=== PATIENT | female | born 1980 | race Hispanic/Latino ===

== ENCOUNTER → 2021-04-28 | Outpatient (CLI) | payer OTHER, MEDICARE ==
[~2021-04-28] MED LIST: AMLO-258 PO; GLIM4TAB PO; INSU100V12 SQ; LISI40TA9 PO; METO50TA18 PO; SEVE800T7 PO
== END | disposition home or self-care (01) ==
LOC: OIH 13:13
PROVIDERS: ATTEND Internal Medicine
DX: M17.11 Unilateral primary osteoarthritis, right knee (principal); M23.90 Unspecified internal derangement of unspecified knee
CPT/HCPCS: 73560

== ENCOUNTER → 2022-09-05 | Outpatient (CLI) | payer OTHER, MEDICARE | END | disposition home or self-care (01) | LOC: RAH 12:29 | PROVIDERS: ATTEND Internal Medicine | DX: M19.072 Primary osteoarthritis, left ankle and foot (principal); M25.475 Effusion, left foot | CPT/HCPCS: 73660 ==

== ENCOUNTER → 2022-11-02 | Outpatient (CLI) | payer OTHER, MEDICARE ==
[~2022-11-02] MED LIST changes: +ACET-2079 PO; +ALPR1TAB2 PO; -AMLO-258 PO; +ATOR40TA69 PO; +BACL10TA PO; +CELE200 PO; +CETI10TA57 PO; +DICL20GE TP; +DOXY-252 PO; +FLUT16H NASAL; +IPRA42SP NS; -LISI40TA9 PO; +METO25TA6 PO; -METO50TA18 PO; +MOBIC PO; +PANT40TA PO; +PREG75 PO; -SEVE800T7 PO; +TRAM50TA4 PO; +TRAZ-185 PO
== END | disposition home or self-care (01) ==
LOC: RAH 11:57
PROVIDERS: ATTEND Internal Medicine
DX: L03.116 Cellulitis of left lower limb (principal)
CPT/HCPCS: 73630

== ENCOUNTER 2022-11-09 09:41 | Emergency (ER) | payer OTHER, MEDICARE ==
[~2022-11-09] VITALS: Ht 172.7 cm; Wt 102.1 kg
[2022-11-09] MEDS ORDERED: HYDROCODONE/ACETAMINOPHEN 5/325 MG TAB PO ONE (12:00)
[2022-11-09] MEDS ORDERED: ACET-2079 PO (14:01)
[2022-11-09 14:35] VITALS: BP 151/82
== END 2022-11-09 14:40 | disposition home or self-care (01) ==
LOC: EDH 09:41
DX: S82.142A Displaced bicondylar fracture of left tibia, initial encounter for closed fracture (principal); Z79.899 Other long term (current) drug therapy; E78.00 Pure hypercholesterolemia, unspecified; E11.9 Type 2 diabetes mellitus without complications; M19.90 Unspecified osteoarthritis, unspecified site; F41.9 Anxiety disorder, unspecified; Z90.710 Acquired absence of both cervix and uterus; V89.2XXA Person injured in unspecified motor-vehicle accident, traffic, initial encounter; Y93.89 Activity, other specified; Y92.89 Other specified places as the place of occurrence of the external cause; Y99.8 Other external cause status; S00.83XA Contusion of other part of head, initial encounter
CPT/HCPCS: 70450; 71045; 72170; 73562; 73590; 73700; 82948

== ENCOUNTER → 2023-02-06 | Outpatient (CLI) | payer OTHER, MEDICARE | END | disposition home or self-care (01) | LOC: RAH 11:11 | PROVIDERS: ATTEND Internal Medicine | DX: M85.872 Other specified disorders of bone density and structure, left ankle and foot (principal); L03.116 Cellulitis of left lower limb | CPT/HCPCS: 73620 ==

== ENCOUNTER 2024-06-12 17:06 | Emergency (ER) | payer OTHER, MEDICARE ==
[~2024-06-12] VITALS: Ht 172.7 cm; Wt 102.5 kg
[2024-06-12] MEDS ORDERED: DOXY100C5 PO (17:38)
--- NOTE | 2024-06-12 17:39 | ERN ---
ED Note History of Present Illness Stated Complaint: SKIN PROBLEM TO LEFT 3RD DIGIT Chief Complaint: Skin Problem Time Seen by MD: 17:08 Time Seen by Midlevel: 17:08 Dictation: The patient is a 43-year-old female with a history of diabetes, hypertension, ESRD TTS who presents to the emergency department with complaints of a worsening left middle finger infection. Patient reports the wound was drained on Monday by PCP and is currently on antibiotics. Patient reports she thinks she is on Keflex 4 times a day for one week. Has not completed her antibiotic treatment. Denies any fevers or chills. Denies other complaints Allergies: Coded Allergies: No Known Drug Allergies (Verified Allergy, Unknown, 11/15/13) Home Meds Active Scripts Doxycycline Hyclate (Doxycycline Hyclate) 100 Mg Capsule, 1 CAP PO BID for 5 Days, #10 CAP 0 Refills Prov:ASAD BEVERLY PACKAGE CAR DRIVER 06/12/24 Acetaminophen with Codeine (Acetaminophen-Cod #3 Tablet) 1 Each Tablet, 1 TAB PO Q6H PRN for SEVERE PAIN (7-10), #20 TAB Prov:MARU REYES MD 11/09/22 Reported Medications Baclofen (Baclofen) 10 Mg Tablet, 10 MG PO HS, TAB 09/14/22 Celecoxib (Celebrex 200Mg Cap) 200 Mg Cap, 200 MG PO BID, CAP 09/14/22 Doxycycline Hyclate (Doxycycline Hyclate) 100 Mg Tablet.dr, 100 MG PO BID, TAB 09/14/22 Cetirizine HCl (Cetirizine HCl) 10 Mg Tablet, 10 MG PO HS, TAB 09/14/22 Pantoprazole Sodium (Protonix) 40 Mg Tablet.dr, 40 MG PO DAILY, TAB 09/14/22 Trazodone HCl (Trazodone HCl) 50 Mg Tablet, 50 MG PO HSPRN PRN for INSOMNIA/SLEEP, TAB 09/14/22 Atorvastatin Calcium (LIPITOR) 40 Mg Tablet, 40 MG PO DAILY, TAB 09/14/22 Ipratropium [place] (Ipratropium Adams) 15 Ml [place], 15 ML NS BID PRN for NASAL CONGESTION, SPRAY 09/14/22 Diclofenac Sodium (Voltaren Arthritis Pain) 20 Gm Gel..gram., 20 GM TP Q4PRN for PAIN 09/14/22 Fluticasone Propionate (Flonase Nasal [place]) 50 Mcg/[place], 50 MCG NASAL BID PRN for NASAL CONGESTION, SPRAY 09/14/22 [Mobic] No Conflict Check, 15 MG PO DAILY PRN for PAIN 09/14/22 Metoprolol Tartrate (Metoprolol Tartrate) 25 Mg Tablet, 25 MG PO BID, TAB 09/14/22 Pregabalin (Lyrica) 75 Mg Cap, 75 MG PO DAILY, CAP 09/14/22 Acetaminophen with Codeine (Acetaminophen-Cod #3 Tablet) 1 Each Tablet, 1 EACH PO Q6HPRN PRN for PAIN LEVEL 6 TO 10, TAB 09/14/22 Alprazolam (Xanax) 1 Mg Tablet, 1 MG PO TIDP PRN for ANXIETY/AGITATION, TAB 09/14/22 Tramadol Hcl (Tramadol HCl) 50 Mg Tablet, 50 MG PO Q6HPRN PRN for PAIN LEVEL 4 TO 6, TAB 09/14/22 Glimepiride (Amaryl) 4 Mg Tablet, 4 MG PO DAILY, TAB 12/23/14 Insulin Detemir (Levemir) 100 Unit/1 Ml Vial, 50 UNIT SQ BIDAC, VIAL 12/23/14 Past Medical History Past Medical History: Anxiety, Arthritis, Diabetes-Type II, High Cholesterol, Renal Failure Additional Past Medical Hx: BLIND Surgical History: Hysterectomy, Surgical History Other: LEFT FOOT AMPUTATION, RETINAL DETACHMENT SX Social History: Negative, Lives with family History: Not Applicable RN Note Reviewed/Agreed w/PFSH: Yes Review of System Dictation Constitutional: Negative for fever,chills, and weight loss Eyes: Negative for injury, pain,redness, and discharge ENT: Negative for injury,pain or swelling Cardiovascular: Negative for chest pain, palpitations, and edema Respiratory: Negative for shortness of breath, cough, and wheezing, Abdomen/GI: Negative for abdominal pain, nausea, vomiting, diarrhea, and constipation Back: Negative for injury and pain : Negative for injury, bleeding and discharge MS/Extremity: Negative for injury and deformity Skin: Negative for rash, and discoloration positive for erythema left finger Neuro: Negative for headache, weakness, numbness, tingling, and seizure Psych: Negative for suicide ideation, homicidal ideation, and hallucinations Initial Vital Sign VS Vital Signs Date Time Temp Pulse Resp B/P (MAP) Pulse Ox O2 Delivery O2 Flow Rate FiO2 06/12/24 17:08 97.5 76 16 137/72 100 Room Air* 0 21 Physical Exam Dictation Vital Signs reviewed General Appearance: Alert, oriented x 3, no acute distress, well developed, nourished. Head and Face: non-traumatic. Eyes: PERRL, pink conjunctivas, eyelid no trauma, anterior chamber with arcus senilis. Ears: Pinnas intact and no signs of trauma or erythema ear canals clear and no discharge TM no erythema Nose: No discharge, no bleeding. Oropharynx: Mouth normal, tongue pink. pharynx clear,no erythema, tonsils no exudates, no abscesses noted, mucous membrane moist Neck: Supple, non-tender, no thyromegaly, no masses, no JVD, no bruits Breast:Deferred Chest:No tenderness, no crepitus, no paradoxical movement, no retractions Lungs:Clear, well-ventilated, symmetric, no rales, no wheezing, no rhonchi, no stridor, good breath sounds bilaterally Heart: Regular rate, regular rhythm, no murmur, no gallops Vascular: no peripheral edema, Abdomen: Soft, positive bowel sounds, nondistended, no guarding, nontender, no rebound, no masses no hepatomegaly, no splenomegaly, no Pérez's sign, no hernias. Rectal: Deferred Genital: Deferred Neurological: Normal speech, motor function intact, sensory function intact Musculoskeletal: Neck nontender, full range of motion, back nontender, full range of motion, Extremities: nontender, full range of motion Skin: Color pink, dry, no turgor, no rash, no lacerations, no abrasions, no contusions. erythema to left middle finger, no drainage, warmth to touch Lymphatic: Deferred Results (Laboratory/Radiology) Labs Reviewed?: Yes ED Course ED Course Orders Procedure Category Date Status Time Hydrocodone/Apap PHA 06/12/24 Complete 5/325 ([place] 5/325mg) 17:30 Current Medications Medications (Trade) Dose Ordered Sig/Ene Route PRN Reason Start Time Stop Time Status Last Admin Dose Admin Acetaminophen/ Hydrocodone Bitart (NORco 5/325MG) 1 tab ONCE ONCE PO 06/12/24 17:30 06/12/24 17:31 DC 06/12/24 18:40 Vital Signs Date Time Temp Pulse Resp B/P (MAP) Pulse Ox O2 Delivery O2 Flow Rate FiO2 06/12/24 18:37 98.2 70 16 135/70 99 Room Air* 0 21 06/12/24 17:08 97.5 74 16 137/72 98 Room Air 0 06/12/24 17:08 97.5 76 16 137/72 100 Room Air* 0 21 Medical Decision Making MDM The patient is a 43-year-old female with a history of diabetes, hypertension, ESRD TTS who presents to the emergency department with complaints of a worsening left middle finger infection. Patient reports the wound was drained on Monday by PCP and is currently on antibiotics. Patient reports she thinks she is on Keflex 4 times a day for one week. Has not completed her antibiotic treatment. Denies any fevers or chills. Denies other complaints Patient currently on antibiotic treatment for wound. No drainage. No abscess. Erythema surrounding nail. We will at doxycycline to antibiotic treatment pa ken instructed to follow up with PCP. Differential diagnosis: Abscess, paronychia, cellulitis Need for hospitalization: Patient does not meet criteria for hospitalization. There are no social concerns with this patient. DX & DISP Disposition: Discharge Departure Condition: Stable Scripts Doxycycline Hyclate (Doxycycline Hyclate) 100 Mg Capsule 1 CAP PO BID for 5 Days, #10 CAP 0 Refills Prov: ASAD BEVERLY PACKAGE CAR DRIVER 06/12/24 Additional Instructions: Please follow up with PCP in 1-2 days. Continue taking your antibiotics prescribed by your doctor in you can continue taking this antibiotic. If symptoms worsen or fever develops please visit your PCP or return to ER. FOLLOW-UP WITH PRIMARY CARE PROVIDER IN 1 TO 2 DAYS. TAKE MEDICATIONS DIRECTED HERE IN THE EMERGENCY ROOM. OKAY TO CONTINUE HOME MEDICATIONS UNLESS OTHERWISE DISCUSSED DURING YOUR VISIT IN THE EMERGENCY ROOM TODAY. RETURN TO YOUR NEAREST EMERGENCY ROOM IF SYMPTOMS WORSEN OR IF THERE IS NO IMPROVEMENT. CALL 911 IF YOU NEED IMMEDIATE ASSISTANCE. TAKE TYLENOL OR MOTRIN [id number] NEEDED AND IF NO CONTRAINDICATIONS ARE PRESENT. INCREASE ORAL HYDRATION. A WOUND CULTURE OR URINE CULTURE WAS ORDERED HERE IN THE EMERGENCY ROOM DEPARTMENT PLEASE FOLLOW-UP WITH PRIMARY CARE PROVIDER AND ADVISE THEM TO GET REPEAT PORTS FROM OUR FACILITY. IF YOU HAD ANY ARON WRAP/SPLINTS THAT WERE APPLIED HERE, PLEASE DO NOT REMOVE THEM UNTIL YOU SEE YOUR PRIMARY CARE OR SPECIALTY. Referrals: EDUARDO MARRERO MD (PCP) Time of Disposition: 17:36 I have reviewed the case, and I agree with, Diagnosis and Plan ATTESTATION BY PHYSICIAN I PERFORMED THE SUBSTANTIVE PORTION OF THE VISIT. I HAVE REVIEWED AND PERSONALLY MADE AND APPROVED THE MANAGEMENT PLAN THAT IS DOCUMENTED IN THE NOTE BY MYSELF FOR THE A PP. I ACKNOWLEDGED FOR RESPONSIBILITY FOR THE PATIENT'S MANAGEMENT PLAN. ASAD BEVERLY Jun 12, 2024 17:38 VALERIE CRUZ MD Jun 14, 2024 17:25
[2024-06-12 18:37] VITALS: BP 135/70; PULSE 70; RESP 16; TEMP 98.3; O2SAT 99
[2024-06-12] MEDS: HYDROcodone/APAP 5/325 1 TAB TABLET PO ONE (18:40)
== END 2024-06-12 19:15 | disposition home or self-care (01) ==
LOC: EDH 17:06
DX: L53.8 Other specified erythematous conditions (principal); F41.9 Anxiety disorder, unspecified; M19.90 Unspecified osteoarthritis, unspecified site; I12.0 Hypertensive chronic kidney disease with stage 5 chronic kidney disease or end stage renal disease; E11.22 Type 2 diabetes mellitus with diabetic chronic kidney disease; N18.6 End stage renal disease; Z79.84 Long term (current) use of oral hypoglycemic drugs; Z79.899 Other long term (current) drug therapy; Z90.710 Acquired absence of both cervix and uterus; Z99.2 Dependence on renal dialysis
CPT/HCPCS: 99283

== ENCOUNTER 2024-06-19 22:02 | Emergency (ER) | payer OTHER, MEDICARE ==
[~2024-06-19] VITALS: Ht 172.7 cm; Wt 103.4 kg
[~2024-06-19 22:02] MED LIST changes: +DOXY100C5 PO
[2024-06-19 22:04] VITALS: TEMP 96.8
[2024-06-19 22:28] LABS: BASOPHILS # (AUTO) 0.09 K/uL (0.00-0.20); BASOPHILS % (AUTO) 0.7 % (0.0-5.0); EOSINOPHILS # (AUTO) 0.19 K/uL (0.00-0.70); EOSINOPHILS % (AUTO) 1.4 % (0.0-8.0); HEMATOCRIT 33.4 % (36-48); IMMATURE GRANULOCYTE ABSOLUTE 0.04 K/uL (0-1); LYMPHOCYTES # (AUTO) 1.7 K/uL (1.0-4.8); MEAN CORPUSCULAR HEMOGLOBIN 34.6 pg (27.0-33.0); MEAN CORPUSCULAR HGB CONC 32.3 g/dL (32.0-36.0); MEAN CORPUSCULAR VOLUME 107.1 fL (79-99); MONOCYTES # (AUTO) 0.7 K/uL (0.1-1.0); MONOCYTES % (AUTO) 5.5 % (3.0-13.0); NEUTROPHILS # (AUTO) 10.5 K/uL (1.8-7.7); NEUTROPHILS % (AUTO) 79.1 % (40.0-77.0); PLATELET COUNT (AUTO) 213 K/uL (130-400); RED BLOOD CELL COUNT(AUTO) 3.12 MIL/uL (4.00-5.50); RED CELL DISTRIBUTION WIDTH 14.6 % (11.0-15.5); WHITE BLOOD COUNT (AUTO) 13.2 K/uL (4.8-10.8)
[2024-06-19] MEDS: ondanSETRON 4MG INJ IVP ONE (22:34)
[2024-06-19 22:43] LABS: POTASSIUM 4.9 mmol/L (3.5-5.1)
[2024-06-19 22:45] LABS: INR <= 0.93 (0.85-1.15); PROTHROMBIN TIME 9.8 SEC (9.6-11.6)
[2024-06-19 22:47] LABS: PARTIAL THROMBOPLASTIN TIME 21.9 SEC (26.3-35.5)
[2024-06-19 22:49] LABS: CREATININE 9.4 mg/dL (0.5-1.0)
[2024-06-19 22:58] LABS: B-TYPE NATRIURETIC PEPTIDE 66 pg/mL (0-100)
[2024-06-19] MEDS: INSULIN humuLIN R 100 UNIT/ML 3ML IV ONE (23:33)
--- NOTE | 2024-06-19 23:53 | ERN ---
General Chief Complaint: Chest Pain Stated Complaint: C/O CP,SOB,DIZZINESS,N X V, ABD PAIN; DIALYSIS TOD Time Seen by MD: 22:06 Source: patient History of Present Illness Initial Comments Patient is a 43-year-old female coming in to be evaluated for multiple complaints. Patient states he has been very dizzy felt nauseous and also presented with chest discomfort which is why she was here. Allergies: Coded Allergies: No Known Drug Allergies (Verified Allergy, Unknown, 11/15/13) Home Meds Active Scripts Doxycycline Hyclate (Doxycycline Hyclate) 100 Mg Capsule, 1 CAP PO BID for 5 D ays, #10 CAP 0 Refills Prov:ASAD BEVERLY RESPIRATORY CLINICIAN 06/12/24 Acetaminophen with Codeine (Acetaminophen-Cod #3 Tablet) 1 Each Tablet, 1 TAB PO Q6H PRN for SEVERE PAIN (7-10), #20 TAB Prov:MARU REYES MD 11/09/22 Reported Medications Baclofen (Baclofen) 10 Mg Tablet, 10 MG PO HS, TAB 09/14/22 Celecoxib (Celebrex 200Mg Cap) 200 Mg Cap, 200 MG PO BID, CAP 09/14/22 Doxycycline Hyclate (Doxycycline Hyclate) 100 Mg Tablet.dr, 100 MG PO BID, TAB 09/14/22 Cetirizine HCl (Cetirizine HCl) 10 Mg Tablet, 10 MG PO HS, TAB 09/14/22 Pantoprazole Sodium (Protonix) 40 Mg Tablet.dr, 40 MG PO DAILY, TAB 09/14/22 Trazodone HCl (Trazodone HCl) 50 Mg Tablet, 50 MG PO HSPRN PRN for INSOMNIA/SLEEP, TAB 09/14/22 Atorvastatin Calcium (LIPITOR) 40 Mg Tablet, 40 MG PO DAILY, TAB 09/14/22 Ipratropium [place] (Ipratropium [place]) 15 Ml T[place], 15 ML NS BID PRN for NASAL CONGESTION, SPRAY 09/14/22 Diclofenac Sodium (Voltaren Arthritis Pain) 20 Gm Gel..gram., 20 GM TP Q4PRN for PAIN 09/14/22 Fluticasone Propionate (Flonase Nasal [place]) 50 Mcg/Tensed [place], 50 MCG NASAL BID PRN for NASAL CONGESTION, SPRAY 09/14/22 [Mobic] No Conflict Check, 15 MG PO DAILY PRN for PAIN 09/14/22 Metoprolol Tartrate (Metoprolol Tartrate) 25 Mg Tablet, 25 MG PO BID, TAB 09/14/22 Pregabalin (Lyrica) 75 Mg Cap, 75 MG PO DAILY, CAP 09/14/22 Acetaminophen with Codeine (Acetaminophen-Cod #3 Tablet) 1 Each Tablet, 1 EACH PO Q6HPRN PRN for PAIN LEVEL 6 TO 10, TAB 09/14/22 Alprazolam (Xanax) 1 Mg Tablet, 1 MG PO TIDP PRN for ANXIETY/AGITATION, TAB 09/14/22 Tramadol Hcl (Tramadol HCl) 50 Mg Tablet, 50 MG PO Q6HPRN PRN for PAIN LEVEL 4 TO 6, TAB 09/14/22 Glimepiride (Amaryl) 4 Mg Tablet, 4 MG PO DAILY, TAB 12/23/14 Insulin Detemir (Levemir) 100 Unit/1 Ml Vial, 50 UNIT SQ BIDAC, VIAL 12/23/14 Past Medical History Past Medical History: Diabetes-Type II, Heart Disease, Hypertension, Renal Failure Medical History Other: BLIND Past Surgical History: Other Surgical History Other: LEFT FOOT AMPUTATION, RETINAL DETACHMENT SX Social History Social History: Negative, Lives with family Female( History) History: Not Applicable ROS Dictation CONSTITUTIONAL: No chills, no fever, no weakness, no diaphoresis, no malaise. HEAD/FACE: No signs of trauma. EENT: No eye pain, no blurred vision, no tearing, no double vision, no ear pain, no ear discharge, no nose pain, no nasal congestion, no throat pain, no throat swelling, no mouth pain. RESPIRATORY: No cough, no orthopnea, no SOB, no stridor, no wheezing. CARDIOVASCULAR: No chest pain, no edema, no palpitations, no syncope. GASTROINTESTINAL/ABDOMINAL: No abdominal pain, no constipation, no diarrhea, no nausea, no vomiting. GENITOURINARY: No abnormal discharge, no dysuria, no frequent urination, no hematuria. No complaints of pain in the genitals. MUSCULOSKELETAL: No back pain, no gout, no joint pain, no joint swelling, no muscle pain, no muscle stiffness, no neck pain. INTEGUMENTARY: No change in color, no change in hair/nails, no dryness, no lesion, no lumps, no rash. NEUROLOGICAL/PSYCH: No anxiety, not depressed, no emotional problem, no headache, no numbness, no pre-existing deficit, no history of seizures, no tremors, no weakness. HEMATOLOGIC/LYMPHATIC: Not anemic, no history of blood clots, no apparent bleeding, no bruising, glands not swollen. All Systems Negative, Except as Noted. Physical Exam Physical Exam Dictation VITAL SIGNS: Reviewed. GENERAL APPEARANCE: Alert, oriented x3, no acute distress, obese. HEAD AND FACE: Non-traumatic. EYES: PERRL, pink conjunctivas, eyelid no trauma, anterior chamber clear. EARS: Pinnas intact and no signs of trauma or erythema. Ear canals clear and no discharge. TMs no erythema. NOSE: No discharge, no bleeding. OROPHARYNX: Mouth normal, teeth no caries, tongue pink. Pharynx clear, no erythema. Tonsils no exudates, no abscesses noted. Mucous membrane moist. NECK: Supple, non-tender, no thyromegaly, no masses, no JVD, no bruits. BREAST: Deferred. CHEST: No tenderness, no crepitus, no paradoxical movement, no retractions. LUNGS: Clear, well-ventilated, symmetric, no rales, no wheezing, no rhonchi, no stridor, good breath sounds bilaterally. HEART: Regular rate, regular rhythm, no murmur, no gallops. VASCULAR: No peripheral edema. ABDOMEN: Soft, positive bowel sounds, nondistended, no guarding, nontender, no rebound, no masses no hepatomegaly, no splenomegaly, no Pérez's sign, no hernias. RECTAL: Deferred. GENITAL: Deferred. NEUROLOGICAL: Normal speech, gross motor function intact, gross sensory function intact. MUSCULOSKELETAL: Neck nontender, full range of motion, back nontender, full range of motion. EXTREMITIES: Nontender, full range of motion. SKIN: Color pink, dry, no turgor, no rash, no lacerations, no abrasions, no contusions. LYMPHATICS: Deferred. Results Laboratory and Microbiology Lab and Micro Result Laboratory Tests Test 06/19/24 22:19 06/19/24 23:25 06/20/24 00:14 06/20/24 00:51 White Blood Count 13.2 K/uL (4.8-10.8) H Red Blood Count 3.12 MIL/uL (4.00-5.50) L Hemoglobin 10.8 g/dL (12.0-16.0) L Hematocrit 33.4 % (36-48) L Mean Corpuscular Volume 107.1 fL (79-99) H Mean Corpuscular Hemoglobin 34.6 pg (27.0-33.0) H Mean Corpuscular Hemoglobin Concent 32.3 g/dL (32.0-36.0) Red Cell Distribution Width 14.6 % (11.0-15.5) Platelet Count 213 K/uL (130-400) Mean Platelet Volume 10.6 fL (7.5-10.5) H Immature Granulocyte % (Auto) 0.3 % (0-1) Neutrophils (%) (Auto) 79.1 % (40.0-77.0) H Lymphocytes (%) (Auto) 13.0 % (21.0-51.0) L Monocytes (%) (Auto) 5.5 % (3.0-13.0) Eosinophils (%) (Auto) 1.4 % (0.0-8.0) Basophils (%) (Auto) 0.7 % (0.0-5.0) Neutrophils # (Auto) 10.5 K/uL (1.8-7.7) H Lymphocytes # (Auto) 1.7 K/uL (1.0-4.8) Monocytes # (Auto) 0.7 K/uL (0.1-1.0) Eosinophils # (Auto) 0.19 K/uL (0.00-0.70) Basophils # (Auto) 0.09 K/uL (0.00-0.20) Absolute Immature Granulocyte (auto 0.04 K/uL (0-1) Nucleated Red Blood Cells 0.0 % (0.0-0.19) Red Blood Cell Morphology See comments Prothrombin Time 9.8 SEC (9.6-11.6) Prothromb Time International Ratio <= 0.93 (0.85-1.15) Activated Partial Thromboplast Time 21.9 SEC (26.3-35.5) L Sodium Level 130 mmol/L (136-145) L Potassium Level 4.9 mmol/L (3.5-5.1) Chloride Level 91 mmol/L (101-111) L Carbon Dioxide Level 32 mmol/L (21-32) Blood Urea Nitrogen 44 mg/dL (7-18) H Creatinine 9.4 mg/dL (0.5-1.0) *H Glomerular Filtration Rate Calc 5 mL/min (>90) Random Glucose 507 mg/dL (70-105) *H Total Calcium 7.8 mg/dL (8.5-10.1) L Total Creatine Kinase 95 U/L (21-232) # Troponin I High Sensitivity < 4 ng/L (4-50) L < 4 ng/L (4-50) L B-Type Natriuretic Peptide 66 pg/mL (0-100) Whole Blood Glucose 423 MG/DL (70-110) *H Bedside Glucose Comment Notified Nurse Whole Blood Ketones Quantitative 0.1 mmol/L (0.0-0.6) Blood Gas Specimen Type Arterial Arterial Blood pH 7.420 (7.350-7.450) Arterial Blood Partial Pressure CO2 44 mmHg (32-45) Arterial Blood Partial Pressure O2 76.6 mmHg (83.0-108.0) L Arterial Blood HCO3 28.0 mmol/L (21.0-28.0) Arterial Blood Oxygen Saturation 94.8 % (94.0-98.0) Arterial Blood Base Excess 3.1 mmol/L (-2.0-3.0) H Hemoglobin (Blood Gas) 11.6 g/dL (12.0-16.0) L Sodium (Blood Gas) 135 MMOL/L (136-145) L Bedside Potassium (Blood Gas) 4.7 MMOL/L (3.4-4.5) H Bedside Chloride (Blood Gas) 94 MMOL/L (98-107) L Bedside Glucose (Blood Gas) 324 MG/DL (65-95) H Bedside Ionized Calcium (Blood Gas) 0.96 MMOL/L (1.15-1.33) L Bedside Lactic Acid (Blood Gas) 2.14 MMOL/L (0.36-0.75) H Blood Gas Temperature 37.0 CELSIUS (35.5-37.0) Blood Gas Vent Mode ROOMAIR (ROOM AIR) FiO2 21.0 % Blood Gas Specimen Comment RB Test 06/20/24 01:43 Whole Blood Glucose 267 MG/DL (70-110) H Labs Reviewed?: Yes EKG/XRAY/US/CT/MRI EKG Comment 06/19/2024 time 10:09 p.m. Ventricular rate [address] wave elevation or depression [place] 156 MDM MDM: Differential diagnosis: Diabetes mellitus uncontrolled, hyperglycemia, leukocytosis Patient is a 43-year-old female coming in to be evaluated for generalized body weakness. Laboratory workup positive for elevated blood glucose. Mild leukocytosis antibiotics will be given. I advised her appropriate follow up with PCP. Glucose was controlled with insulin patient states feels much better. ED Course Orders Procedure Category Date Status Time Cbc With Differential LAB 06/19/24 Complete 22:13 Prothrombin Time With LAB 06/19/24 Complete INR 22:13 B-Type Natriuretic LAB 06/19/24 Complete Peptide 22:13 Chest 1vw RAD 06/19/24 Taken 22:13 12 Lead Ekg Tracing- EKG 06/19/24 Logged Technical 22:13 Creatine Kinase, Total LAB 06/19/24 Complete 22:13 Troponin I High LAB 06/19/24 Complete Sensitivity 22:13 Urinalysis Profile LAB 06/19/24 Logged 22:13 Partial LAB 06/19/24 Complete Thromboplastin Time 22:13 Basic Metabolic Panel LAB 06/19/24 Complete 22:13 Ondansetron 4mg Inj PHA 06/19/24 Complete (Zofran 4mg Inj) 22:30 Insulin Regular, PHA 06/19/24 Complete Human 3ml (Humulin R 23:30 Troponin I High LAB 06/19/24 Complete Sensitivity 23:49 Arterial Blood Gas + RT 06/19/24 Transmitted 23:50 Ketone Blood LAB 06/19/24 Complete Quantitative 23:50 Arterial Blood Gas LAB 06/20/24 Complete Arterial + 00:51 Bedside Glucose CPOE 06/20/24 Transmitted Fingerstick 01:17 Current Medications Medications (Trade) Dose Ordered Sig/Ene Route PRN Reason Start Time Stop Time Status Last Admin Dose Admin Insulin Human Regular (humuLIN R 100 UNIT/ML 3ML) 5 unit ONCE ONCE IV 06/19/24 23:30 06/19/24 23:31 DC 06/19/24 23:33 Ondansetron HCl (zoFRAN 4MG INJ) 4 mg ONCE ONCE IVP 06/19/24 22:30 06/19/24 22:31 DC 06/19/24 22:34 Vital Signs Date Time Temp Pulse Resp B/P (MAP) Pulse Ox O2 Delivery O2 Flow Rate FiO2 06/20/24 00:31 76 16 120/76 96 Room Air* 0 21 06/19/24 22:43 75 16 140/65 95 Room Air* 0 21 06/19/24 22:04 96.8 83 20 170/86 100 Room Air DX & DISP Disposition: Discharge Departure Impression: Primary Impression: Uncontrolled diabetes mellitus Additional Impression: Leukocytosis Condition: Stable Scripts Cephalexin Monohydrate (Keflex) 500 Mg Cap 1 CAP PO TID for 10 Days, #30 CAP 0 Refills Prov: VALERIE CRUZ MD 06/20/24 Additional Instructions: FOLLOW-UP WITH PRIMARY CARE PROVIDER IN 1 TO 2 DAYS. TAKE MEDICATIONS DIRECTED HERE IN THE EMERGENCY ROOM. OKAY TO CONTINUE HOME MEDICATIONS UNLESS OTHERWISE DISCUSSED DURING YOUR VISIT IN THE EMERGENCY ROOM TODAY. RETURN TO YOUR NEAREST EMERGENCY ROOM IF SYMPTOMS WORSEN OR IF THERE IS NO IMPROVEMENT. CALL 911 IF YOU NEED IMMEDIATE ASSISTANCE. TAKE TYLENOL [id number] NEEDED AND IF NO CONTRAINDICATIONS ARE PRESENT. INCREASE ORAL HYDRATION. A WOUND CULTURE OR URINE CULTURE WAS ORDERED HERE IN THE EMERGENCY ROOM DEPARTMENT PLEASE FOLLOW-UP WITH PRIMARY CARE PROVIDER AND ADVISE THEM TO GET REPEAT PORTS FROM OUR FACILITY. IF YOU HAD ANY ARON WRAP/SPLINTS THAT WERE APPLIED HERE, PLEASE DO NOT REMOVE THEM UNTIL YOU SEE YOUR PRIMARY CARE OR SPECIALTY. Referrals: Referrals: EDUARDO MARRERO MD (PCP) Time of Disposition: 01:50 VALERIE CRUZ MD Jun 19, 2024 23:53
[2024-06-20 00:53] LABS: ABG BASE EXCESS 3.1 mmol/L (-2.0-3.0); ABG OXYGEN SATURATION 94.8 % (94.0-98.0); ABG PCO2 44 mmHg (32-45); CARBON MONOXIDE 0.7 % (0.5-1.5); HHb 5.1; PO2, ARTERIAL BG 76.6 mmHg (83.0-108.0); VENT MODE, BG ROOMAIR (ROOM AIR)
[2024-06-20] MEDS ORDERED: CEPH500B PO (01:51)
[2024-06-20 01:53] VITALS: BP 116/77; PULSE 76; RESP 14; O2SAT 98
--- NOTE | 2024-06-20 05:31 | EKG ---
[facility] Test Date: 2024-06-19 Test Time: 22:09:28 Pat Name: RENEE MENA Department: ED Room: Gender: F Oxyacetylene Burner: [id number] : [id number] Requested By: VALERIE CRUZ Order Number: [id number] Reading MD: Jose Casillas Measurements Intervals [place] Rate: 81 P: 55 SD: 156 QRS: 13 QRSD: 102 T: 33 QT: 401 QTc: 467 Interpretive Statements Sinus rhythm Left atrial enlargement Compared to ECG 09/16/2022 11:09:58 Atrial abnormality now present Low QRS voltage now present Electronically Signed On 06-20-2024 20:45:[address] by Jose Casillas Please click the below link to view image of tracing.
--- NOTE | 2024-06-20 10:12 | HMCIMG ---
PORTABLE CHEST RADIOGRAPH INDICATION: chest pain COMPARISON: 11/09/2022 FINDINGS: Heart size is normal. The pulmonary vascularity and nancy appear normal. No abnormal pulmonary parenchymal opacity or consolidation identified. No significant pleural effusion noted. No pneumothorax detected. IMPRESSION: No radiographic evidence for any acute cardiopulmonary process.
== END 2024-06-20 02:18 | disposition home or self-care (01) ==
LOC: EDH 22:02
DX: E11.65 Type 2 diabetes mellitus with hyperglycemia (principal); D72.829 Elevated white blood cell count, unspecified; Z79.84 Long term (current) use of oral hypoglycemic drugs; Z79.899 Other long term (current) drug therapy; Z99.2 Dependence on renal dialysis
CPT/HCPCS: 99285; 96374; 71045; 96375; 82947; 82948 ×2; 82550; 84484 ×2; 80048; 82803; 83880; 85025; 85610; 85730; 83605; 82010; 36415 ×2; 93005; 82435; 84132; 84295; 85018; 36600; J1815; J2405